=== PATIENT | female | born 1935 | race Caucasian/White ===

== ENCOUNTER 2017-04-16 08:55 | Day surgery (SDC) | payer MEDICARE, OTHER ==
[2017-04-16] MEDS ORDERED: Sodium Chloride 0.9% 5 ML Syringe FLUSH PRN (09:00)
[2017-04-16] MEDS ORDERED: Lactated Ringers 1,000 ML IV SCH (09:00)
[2017-04-16] MEDS ORDERED: EPINEPHrine 1:10,000 1 MG/10 ML Syringe ONE ×2 (10:08→10:40)
[2017-04-16] MEDS ORDERED: Propofol 200 MG/20 ML SDV ONE (10:11)
[2017-04-16] MEDS ORDERED: Midazolam 1 MG/ML 2 ML SDV ONE (10:11)
[2017-04-16] MEDS ORDERED: fentaNYL 100 MCG/2 ML SDV ONE (10:11)
[2017-04-16] MEDS ORDERED: fentaNYL 100 MCG/2 ML SDV IV ONE (10:15)
[2017-04-16] MEDS ORDERED: Midazolam 1 MG/ML 2 ML SDV IV ONE (10:15)
[2017-04-16] MEDS ORDERED: Propofol 200 MG/20 ML SDV IV ONE (10:15)
--- NOTE | 2017-04-16 11:01 | PCM.OPNOTE ---
- General Post-Op/Procedure Note Date of Surgery/Procedure: 04/16/17 Operative Procedure(s): Colonoscopy with polypectomy Findings: Moderately enlarged sessile polyp was identified at 27 for some anal margin. Using injection of one is to 10,000 epinephrine, loop electrocautery was able to remove the polyp. Anesthesia Technique: MAC Primary Surgeon: Paulie Mauro Condition: Good Free Text/Narrative:: INFORMED CONSENT: Patient is here today for elective colonoscopy. All aspects of this procedure have been discussed with the patient. All possible complications also, including possibility of perforation, infection, pain, bleeding and unknown complications. In the event of perforation patient may need to have abdominal exploration, colon resection, colostomy and even was discussed. Anesthetic complications were handled by anesthesia department. The patient understands fully well. Patient did not have any further questions for me at the end of my interview. The patient wishes for me to proceed. PREOPERATIVE DIAGNOSIS/INDICATIONS: [Hemoccult positive stool. ] POSTOPERATIVE DIAGNOSIS: [] INSTRUMENT USED: Olympus videocolonoscope. ASA CLASSIFICATION: [2] ANESTHESIA: Continuous EKG, oximetry and intermittent blood pressure and respiratory monitoring were performed throughout the procedure. IV Versed and Fentanyl were administered. PROCEDURE PERFORMED: Colonoscopy POSITIONS OF PATIENT: Left lateral. RECTUM: Normal. SIGMOID COLON: A 27 to some anal margin, a sessile polyp was identified and removed using injection of one is to 10,000 epinephrine, loop and the electrocautery.. DESCENDING COLON: Normal. SPLENIC FLEXURE: Normal. TRANSVERSE COLON: Normal. HEPATIC FLEXURE: Normal. ASCENDING COLON: Normal. CECUM: Normal. ILEOCECAL VALVE: Normal. BIOPSY: None. TOLERANCE: Excellent. COMPLICATIONS: None. Sessile moderately enlarged polyp at the rectosigmoid junction.
== END 2017-04-16 12:10 | disposition home or self-care (01) ==
LOC: KA.SDS 08:55
PROVIDERS: ATTEND Family Medicine
DX: D12.6 Benign neoplasm of colon, unspecified (principal); I10 Essential (primary) hypertension; E78.5 Hyperlipidemia, unspecified; Z79.82 Long term (current) use of aspirin; Z79.2 Long term (current) use of antibiotics; Z79.899 Other long term (current) drug therapy
CPT/HCPCS: 45381; 45388; 88305; J0171; J2250; J2704; J3010; J7120

== ENCOUNTER 2020-05-17 10:02 | Emergency (ER) | payer MEDICARE, OTHER ==
--- NOTE | 2020-05-17 10:40 | EDM.PDOC ---
ED HPI GENERAL MEDICAL PROBLEM - General Chief Complaint: Gastrointestinal Problem Stated Complaint: STOMACH PAIN Time Seen by Provider: 05/17/20 10:30 Source of Information: Reports: Patient, Old Records History Limitations: Reports: No Limitations - History of Present Illness INITIAL COMMENTS - FREE TEXT/NARRATIVE: Gisselle, 85-year-old female, presents to the emergency department via recommendation of her clinic as she is yet to have bowel movement. Was seen last week in [place] placed on different medications including suppository/enema for constipation. At that time she was experiencing abdominal pain and had abdominal series performed with which she describes stool but no evidence of obstruction. She contacted the clinic today as she is yet to have a bowel movement and was told to present to the emergency department. She does not have any pain or discomfort today. States she may get a small smear when wiping after she urinates but does not have urge to defecate. She denies fever chills or other factors. She states for diet he is down some as she just does not have appetite since all of this started, as usual. Denies any history of abdominal surgeries or procedures that would be prominent for adhesion causes. Duration: Constant Location: Reports: Abdomen, Pelvis - Related Data Allergies Allergy/AdvReac Type Severity Reaction Status Date / Time No Known Drug Allergies Allergy NKDA Verified 05/17/20 10:28 Home Meds: Home Meds Aspirin [Halfprin] 81 mg PO DAILY 04/13/17 [History] Benazepril [Lotensin] 20 mg PO DAILY 04/13/17 [History] Calcium Carbonate/Vitamin D3 [Calcium 500 + Vit D 400] 1 each PO DAILY 04/13/17 [History] Lactobacillus Combination No.4 [Probiotic] 1 each PO DAILY 04/13/17 [History] Multivitamin [Multiple Vitamins] 1 each PO DAILY 04/13/17 [History] Pravastatin Sodium 20 mg PO BEDTIME 04/13/17 [History] amLODIPine [Norvasc] 5 mg PO DAILY 04/13/17 [History] Past Medical History HEENT History: Reports: Cataract, Impaired Vision Cardiovascular History: Reports: Afib, High Cholesterol, Hypertension Other Cardiovascular History: Hx of A-fib with ablation Gastrointestinal History: Reports: Chronic Constipation, Colon Polyp - Infectious Disease History Infectious Disease History: Reports: Measles - Past Surgical History HEENT Surgical History: Reports: Cataract Surgery Cardiovascular Surgical History: Reports: Cardiac Ablation GI Surgical History: Reports: Colonoscopy, Polypectomy Other GI Surgeries/Procedures: 04/16/17 Female Surgical History: Reports: Hysterectomy Other Female Surgeries/Procedures: complete hysterectomy 2013 Social & Family History - Family History Family Medical History: No Pertinent Family History - Tobacco Use Tobacco Use Within Last Twelve Months: No ED ROS GENERAL - Review of Systems Review Of Systems: Comprehensive ROS is negative, except as noted in HPI. ED EXAM, GENERAL - Physical Exam Exam: See Below Free Text/Narrative:: Alert, oriented, in no apparent distress. Gisselle appears much younger than stated age. HEENT negative discharge or deformity. Aspers moist mucous membranes Neck soft supple no rigidity noted. Thorax is clear throughout with no wheezes nor crackles appreciated. Cardiac S1 is 2 I do not appreciate murmur. Abdomen is soft bowel sounds are active there is no point tenderness or rebound tenderness. There is mild pressure over the urinary bladder and in this region she states is where her pain had been severe last week. There is no flank pain to percussion but at the time of assessment she states that there was some discomfort in that vicinity when she was experiencing the lower abdomen/pelvic cramping last week. There is no edema to the extremities she is able to move about get up from seated position onto the cart and lay back with no deficit or pain stated. Course - Vital Signs Last Recorded V/S: Last Vital Signs Temp 97.5 F 05/17/20 10:05 Pulse 83 05/17/20 11:01 Resp 16 05/17/20 11:01 BP 149/67 H 05/17/20 11:01 Pulse Ox 95 05/17/20 11:01 - Orders/Labs/Meds Orders: Active Orders 24 hr Category Date Time Status Enema [RC] ASDIRECTED Care 05/17/20 11:20 Active Abdomen 1V Upright [CR] Stat Exams 05/17/20 10:24 Taken Labs: Laboratory Tests 05/17/20 05/17/20 05/17/20 Range/Units 10:23 10:30 10:30 WBC 6.73 (5.00-10.00) 10^3/uL RBC 4.32 (3.80-5.50) 10^6/uL Hgb 13.6 (12.0-16.0) g/dL Hct 41.8 (37.0-47.0) % MCV 96.8 H (82.0-92.0) fL MCH 31.5 H (27.0-31.0) pg MCHC 32.5 (32.0-36.0) g/dL RDW 12.1 (11.5-14.5) % Plt Count 168 (150-400) 10^3/uL MPV 11.5 H (7.4-10.4) fL Immature Gran % (Auto) 0.0 (0.0-5.0) % Neut % (Auto) 53.4 (50.0-70.0) % Lymph % (Auto) 37.9 (20.0-40.0) % [place] % (Auto) 8.3 H (2.0-8.0) % Eos % (Auto) 0.0 L (1.0-3.0) % Baso % (Auto) 0.4 (0.0-1.0) % Neut # (Auto) 3.59 (2.50-7.00) 10^3/uL Lymph # (Auto) 2.55 (1.00-4.00) 10^3/uL [place] # (Auto) 0.56 (0.10-0.80) 10^3/uL Eos # (Auto) 0.00 L (0.10-0.30) 10^3/uL Baso # (Auto) 0.03 (0.00-0.10) 10^3/uL Immature Gran # (Auto) 0.00 (0.00-0.50) 10^3/uL Sodium 137 (136-145) mmol/L Potassium 4.1 (3.5-5.1) mmol/L Chloride 101 (98-107) mmol/L Carbon Dioxide 26.7 (21.0-32.0) mmol/L Anion Gap 13.4 (5-15) mmol/L BUN 18 (7-18) mg/dL Creatinine 1.15 (0.51-1.17) mg/dL Est Cr Clr Drug Dosing 39.38 mL/min Estimated GFR (MDRD) 45 mL/min Glucose 112 (70-140) mg/dL Calcium 9.7 (8.7-10.3) mg/dL Total Bilirubin 0.4 (0.2-1.0) mg/dL AST 17 (15-37) U/L ALT 21 (14-63) U/L Alkaline Phosphatase 70 (46-116) U/L Total Protein 8.2 (6.4-8.2) g/dL Albumin 3.99 (3.40-5.00) g/dL Specimen Type Urinvoid Urine Color Yellow (YELLOW) Urine Appearance Clear (CLEAR) Urine pH 6.5 (5.0-9.0) Ur Specific [place] 1.015 (1.005-1.030) Urine Protein Negative (NEGATIVE) mg/dL Urine Glucose (UA) Negative (NEGATIVE) mg/dL Urine Ketones Negative (NEGATIVE) mg/dL Urine Occult Blood Negative (NEGATIVE) Urine Nitrite Negative (NEGATIVE) Urine Bilirubin Negative (NEGATIVE) Urine Urobilinogen 0.2 (0.2-1.0) E.U./dL Ur Leukocyte Esterase Negative (NEGATIVE) Urine RBC 0-5 (0-5) /HPF Urine WBC 0-5 (0-5) /HPF Ur Epithelial Cells Occasional /LPF Urine Bacteria Rare (NONE TO FEW) /HPF - Re-Assessments/Exams Free Text/Narrative Re-Assessment/Exam: 05/17/20 11:20 No significant findings in laboratory analysis nor x-ray with correlation for constipation recommended. Explained this to Gisselle and her and she is agreeing to undergo soapsuds enema to help clearing. Departure - Departure Time of Disposition: 12:08 Disposition: Home, Self-Care 01 Condition: Good Clinical Impression: Constipation - Discharge Information *PRESCRIPTION DRUG MONITORING PROGRAM REVIEWED*: Not Applicable *COPY OF PRESCRIPTION DRUG MONITORING REPORT IN PATIENT HARRISON: Not Applicable Instructions: Chronic Constipation Referrals: Jose Miguel Clay PA-C [Primary Care Provider] - Forms: ED Department Discharge Additional Instructions: The testing today revealed constipation as your diagnosis. The soapsuds enema was successful in relieving some of your stool burden. Continue to take all your medications as directed, possibly increasing your water intake. Follow-up with your clinic as needed. You may consider using Ducosate sodium capsule as a stool softener, this is an irer-sps-pkqyqux medicine and may be taken once or twice daily to promote softer stool. You may also use a bulk forming agent which will assist in the volume of stool and reduce the firmness. Metamucil is an example of this ytwu-vbv-pjzcfhf medication. In the event you are not having bowel movement with a combination of other treatments or not working, MiraLAX is one of the better products to promote bowel movement reducing constipation. Depending on your diet and activity you may be in need of taking MiraLAX at least once daily if not twice daily until you feel you have successfully cleaned out and are feeling better. Follow-up with your clinic or return to the emergency department as needed. Sepsis Event Note (ED) - Evaluation Sepsis Screening Result: No Definite Risk - Focused Exam Vital Signs: Vital Signs Temp Pulse Resp BP Pulse Ox 05/17/20 11:01 83 16 149/67 H 95 05/17/20 10:05 97.5 F 100 18 191/100 H 92 L - Problem List & Annotations (1) Constipation SNOMED Code(s): 80392426 Code(s): K59.00 - CONSTIPATION, UNSPECIFIED Status: Chronic Priority: High Current Visit: Yes Qualifiers: Constipation type: unspecified constipation type Qualified Code(s): K59.00 - Constipation, unspecified - Problem List Review Problem List Initiated/Reviewed/Updated: Yes - My Orders Last 24 Hours: My Active Orders 05/17/20 10:24 Abdomen 1V Upright [CR] Stat 05/17/20 11:20 Enema [RC] ASDIRECTED - Assessment/Plan Last 24 Hours: My Active Orders 05/17/20 10:24 Abdomen 1V Upright [CR] Stat 05/17/20 11:20 Enema [RC] ASDIRECTED Plan: The testing today revealed constipation as your diagnosis. The soapsuds enema was successful in relieving some of your stool burden. Continue to take all your medications as directed, possibly increasing your water intake. Follow-up with your clinic as needed. You may consider using Ducosate sodium capsule as a stool softener, this is an qawx-oob-diyavqa medicine and may be taken once or twice daily to promote softer stool. You may also use a bulk forming agent which will assist in the volume of stool and reduce the firmness. Metamucil is an example of this qfyc-ktl-hbzevfo medication. In the event you are not having bowel movement with a combination of other treatments or not working, MiraLAX is one of the better products to promote miladys l movement reducing constipation. Depending on your diet and activity you may be in need of taking MiraLAX at least once daily if not twice daily until you feel you have successfully cleaned out and are feeling better. Follow-up with your clinic or return to the emergency department as needed.
[2020-05-17 10:58] LABS: ANION GAP 13.4 mmol/L (5-15)
--- NOTE | 2020-05-17 11:03 | CR ---
[id number] RAD/RAD Abdomen Upright; [id number] RAD/RAD Abdomen Flat Plate 1V EXAM: RAD Abdomen Upright, RAD Abdomen Flat Plate 1V INDICATION: CONSTIPATION. COMPARISON: None. Discussion/impression: Unobstructed bowel gas pattern. No radiographically evident pneumoperitoneum. Moderate colonic stool burden. Correlate for constipation. Vascular calcifications in the pelvis. Opacity in the left lung base on examination from 1038 hours resolved on examination from 1040 hours. Findings on the initial examination are consistent with summation artifact from overlapping structures of the chest wall. Preston Bates MD 05/17/20 2389 Thank you for allowing us to participate in the care of your patient.
== END 2020-05-17 12:20 | disposition home or self-care (01) ==
LOC: KA.ED 10:02
DX: K59.00 Constipation, unspecified (principal); I48.91 Unspecified atrial fibrillation; E78.00 Pure hypercholesterolemia, unspecified; I10 Essential (primary) hypertension; Z79.82 Long term (current) use of aspirin; Z79.899 Other long term (current) drug therapy
CPT/HCPCS: 36415; 74018; 74021; 80053; 81001; 85025; 99283; 99284

== ENCOUNTER 2020-05-31 06:54 | Day surgery (SDC) | payer MEDICARE, OTHER ==
[2020-05-31] MEDS ORDERED: Propofol 200 MG/20 ML SDV IV ONE (06:55)
[2020-05-31] MEDS ORDERED: Sodium Chloride 0.9% 10 ML Syringe FLUSH PRN (07:00)
[2020-05-31] MEDS ORDERED: Lactated Ringers 1,000 ML IV SCH (07:00)
[2020-05-31] MEDS ORDERED: Propofol 200 MG/20 ML SDV ONE ×2 (08:15→08:53)
[2020-05-31] MEDS ORDERED: EPINEPHrine 1:10,000 1 MG/10 ML Syringe ONE (08:46)
[2020-05-31] MEDS ORDERED: Sodium Chloride 0.9% 20 ML SDV ONE (08:47)
--- NOTE | 2020-05-31 09:30 | PCM.OPNOTE ---
- General Post-Op/Procedure Note Date of Surgery/Procedure: 05/31/20 Operative Procedure(s): Colonoscopy and polypectomy. Findings: Moderate size, 2 cm friable sessile polyp identified at 20 cm. This polyp was removed using a combination of biopsy loop cautery and injection Pre Op Diagnosis: Flat polyp of the colon at 20 cm. Post-Op Diagnosis: Same Anesthesia Technique: MAC Primary Surgeon: Paulie Mauro Complications: None Condition: Good Free Text/Narrative:: INFORMED CONSENT: Patient is here today for elective colonoscopy. All aspects of this procedure have been discussed with the patient. All possible complications also, including possibility of perforation, infection, pain, bleeding and unknown complications. In the event of perforation patient may need to have abdominal exploration, colon resection, colostomy and even was discussed. Anesthetic complications were handled by anesthesia department. The patient understands fully well. Patient did not have any further questions for me at the end of my interview. The patient wishes for me to proceed. PREOPERATIVE DIAGNOSIS/INDICATIONS: [Fecal incontinence, rectal bleeding,] POSTOPERATIVE DIAGNOSIS: [Weak rectal sphincter, flat nonpedunculated polyp at 20 cm from the anal margin multiple diverticulosis] INSTRUMENT USED: Olympus videocolonoscope. ASA CLASSIFICATION: [2] ANESTHESIA: Continuous EKG, oximetry and intermittent blood pressure and respiratory monitoring were performed throughout the procedure. IV Versed and Fentanyl were administered. PROCEDURE PERFORMED: Colonoscopy POSITIONS OF PATIENT: Left lateral. RECTUM: Normal. SIGMOID COLON: Triple diverticuli were seen.. DESCENDING COLON: A flat friable nonpedunculated polyp was identified approximately 2 cm. This was removed by combination of biopsy, loop electrocautery and injection. Multiple diverticuli were seen. SPLENIC FLEXURE: Normal. TRANSVERSE COLON: Normal. HEPATIC FLEXURE: Normal. ASCENDING COLON: Normal. CECUM: Normal. ILEOCECAL VALVE: Normal. BIOPSY: None. TOLERANCE: Excellent. COMPLICATIONS: None.
== END 2020-05-31 10:05 ==
LOC: KA.SDS 06:54
PROVIDERS: ATTEND Family Medicine
DX: D12.4 Benign neoplasm of descending colon (principal); K57.31 Diverticulosis of large intestine without perforation or abscess with bleeding; K63.5 Polyp of colon; E78.5 Hyperlipidemia, unspecified; I10 Essential (primary) hypertension; Z79.899 Other long term (current) drug therapy; Z79.82 Long term (current) use of aspirin
CPT/HCPCS: 00811; 88305; J2704; J7120

== ENCOUNTER 2021-12-05 07:58 | Day surgery (SDC) | payer MEDICARE, OTHER ==
[2021-12-05] MEDS ORDERED: Sodium Chloride 0.9% 10 ML Syringe FLUSH PRN (08:00)
[2021-12-05] MEDS ORDERED: Lactated Ringers 1,000 ML IV SCH (08:00)
[2021-12-05] MEDS ORDERED: Midazolam 1 MG/ML 2 ML SDV ONE (09:18)
[2021-12-05] MEDS ORDERED: Propofol 200 MG/20 ML SDV ONE (09:19)
[2021-12-05] MEDS ORDERED: Diatrizoate Meglumine/Diatrizoate Sodium 37% 30 ML Bottle PO ONE (12:29)
[2021-12-05] MEDS ORDERED: metroNIDAZOLE/Normal Saline 500 MG in Premix Bag 1 BAG IV ONE (14:32)
[2021-12-05] MEDS ORDERED: cefTRIAXone 2 GM Vial IVPUSH ONE (14:32)
[2021-12-05] MEDS ORDERED: Sodium Chloride 0.9% 1,000 ML IV SCH (14:40)
== END 2021-12-05 15:30 ==
LOC: KA.SDS 07:58
PROVIDERS: ATTEND Family Medicine
DX: Z12.11 Encounter for screening for malignant neoplasm of colon (principal); D12.6 Benign neoplasm of colon, unspecified; K57.30 Diverticulosis of large intestine without perforation or abscess without bleeding; I10 Essential (primary) hypertension; E78.5 Hyperlipidemia, unspecified; Z79.899 Other long term (current) drug therapy; Z79.82 Long term (current) use of aspirin; Z98.890 Other specified postprocedural states; Z87.891 Personal history of nicotine dependence; Z20.822 Contact with and (suspected) exposure to COVID-19
CPT/HCPCS: 00812; 74176; J0696; J2250; J2704; J3490; J7030; J7120; Q9963

== ENCOUNTER 2023-01-05 16:44 | Emergency (ER) | payer MEDICARE, OTHER ==
[2023-01-05] MEDS ORDERED: Simethicone 80 MG Tab.Chew PO ONE (17:07)
[2023-01-06 07:03] VITALS: BP 144/73; PULSE 80
== END 2023-01-05 17:30 | disposition home or self-care (01) ==
LOC: KA.ED 16:44
DX: K59.01 Slow transit constipation (principal); E78.00 Pure hypercholesterolemia, unspecified; I10 Essential (primary) hypertension; Z79.82 Long term (current) use of aspirin; Z79.899 Other long term (current) drug therapy
CPT/HCPCS: 74018; 99284; A9270-GY